=== PATIENT | male | born 1970 ===

== ENCOUNTER → 2019-07-29 | Outpatient (CLI) | payer OTHER ==
--- NOTE | 2019-07-29 09:28 | US ---
EXAMINATION TYPE: US liver DATE OF EXAM: 07/29/2019 COMPARISON: NONE CLINICAL HISTORY: R94.5 elevated lft. Elevated LFT'S. EXAM MEASUREMENTS: Liver Length: 15.1 cm Gallbladder Wall: .3 cm CBD: .3 cm Right Kidney: 10.8 x 4.3 x 3.2 cm Pancreas: Obscured by bowel gas Liver: Very mildly coarsened hepatic echotexture most commonly relating to hepatic steatosis. This s lightly limits evaluation for hepatic masses. No distinct hepatic mass is seen on today's exam. Gallbladder: Contracted patient states he was NPO. Evidence for sonographic Lindsey's sign: No CBD: wnl Right Kidney: Pelviectasis without hydronephrosis. IMPRESSION: 1. Mildly coarsened hepatic echotexture, most commonly related to early hepatic steatosis. Correlate with liver function test results. 2. Contracted gallbladder is incidentally seen. Obscuration of the pancreas by overlying bowel gas.
== END | disposition home or self-care (01) ==
LOC: RADUSWWP 08:18
PROVIDERS: ATTEND Internal Medicine
DX: K76.0 Fatty (change of) liver, not elsewhere classified (principal); R14.3 Flatulence; K86.89 Other specified diseases of pancreas
CPT/HCPCS: 76705

== ENCOUNTER 2019-11-24 | Observation (INO) | payer OTHER | END 2019-11-25 13:54 | disposition home or self-care (01) | PROVIDERS: ADMIT Hospitalist | CPT/HCPCS: 96366 ×2; 96376; 96365; 99291; 36415; 93005 ×2; 93017; 93306; 80061; 80053; 80048; 83735; 84484 ×2; 85025 ×2; 85610; 85730 ×2; 71046; 78452; G0378 ×2; A9500; J1644 ×2; J1245 ==

== ENCOUNTER 2021-01-01 13:26 | Emergency (ER) | payer OTHER ==
[2021-01-01 13:37] VITALS: BP 142/69; PULSE 69; RESP 18; TEMP 98
--- NOTE | 2021-01-01 13:57 | ED ---
General Adult HPI - General Chief complaint: Extremity Injury, Lower Stated complaint: Fall, L Ankle Pain Time Seen by Provider: 01/01/21 13:43 Source: patient, RN notes reviewed, old records reviewed Mode of arrival: wheelchair Limitations: no limitations - History of Present Illness Initial comments: 50-year-old male presenting with left ankle injury. Patient states he tripped and fell yesterday evening rolling his left ankle inward. No other injury reported. He's had increased pain and swelling over the past 24 hours. Pain is on both sides of the ankle but worse on the lateral aspect. No head or neck trauma. No chest pain or abdominal pain. - Related Data Home Medications Medication Instructions Recorded Confirmed Aspirin EC [Ecotrin Low Dose] 81 mg PO DAILY@1230 11/24/19 11/24/19 Atorvastatin [Lipitor] 80 mg PO DAILY@1230 11/24/19 11/24/19 Levothyroxine Sodium [Synthroid] 112 mcg PO DAILY@1230 11/24/19 11/24/19 Metoprolol Tartrate [Lopressor] 25 mg PO DAILY@1230 11/24/19 11/24/19 Nitroglycerin Sl Tabs [Nitrostat] 0.4 mg SUBLINGUAL Q5M PRN 11/24/19 11/24/19 Pantoprazole Sodium [Protonix] 40 mg PO DAILY@1230 11/24/19 11/24/19 lisinopriL [Zestril] 2.5 mg PO DAILY@1230 11/24/19 11/24/19 tiZANidine [Zanaflex] 4 mg PO DAILY@1230 11/24/19 11/24/19 Allergies Allergy/AdvReac Type Severity Reaction Status Date / Time blueberry Allergy Rash/Hives Verified 01/01/21 13:35 latex Allergy Rash/Hives Verified 01/01/21 13:35 Review of Systems ROS Statement: Those systems with pertinent positive or pertinent negative responses have been documented in the HPI. ROS Other: All systems not noted in ROS Statement are negative. Past Medical History Past Medical History: Asthma, Coronary Artery Disease (CAD), Myocardial Infarction ([place]), Thyroid Disorder Additional Past Medical History / Comment(s): kidney stones Last Myocardial Infarction Date:: 2017 History of Any Multi-Drug Resistant Organisms: None Reported Past Surgical History: Bladder Surgery, Heart Catheterization With Stent Date of Last Stent Placement:: 2017 Past Psychological History: No Psychological Hx Reported Smoking Status: Current every day smoker Past Alcohol Use History: None Reported Past Drug Use History: None Reported General Exam Limitations: no limitations General appearance: alert, in no apparent distress Head exam: Present: atraumatic, normocephalic Eye exam: Present: normal appearance, PERRL ENT exam: Present: normal exam Neck exam: Present: normal inspection Respiratory exam: Present: normal lung sounds bilaterally. Absent: respiratory distress Cardiovascular Exam: Present: regular rate, normal rhythm GI/Abdominal exam: Present: soft. Absent: distended, tenderness Extremities exam: Present: normal capillary refill, joint swelling, other (DP pulse intact, there is soft tissue swelling on both medial and lateral aspect of the ankle. No gross deformity.). Absent: pedal edema Neurological exam: Present: alert, oriented X3, CN II-XII intact. Absent: motor sensory deficit Psychiatric exam: Present: normal affect, normal mood Skin exam: Present: warm, dry, intact. Absent: cyanosis, diaphoretic Course Vital Signs 01/01/21 13:33 Temperature 98.0 F Pulse Rate 69 Respiratory 18 Rate Blood Pressure 142/69 O2 Sat by Pulse 98 Oximetry Procedures - Orthopedic Splinting/Casting Injury #1 Side: left Lower Extremity Injury Location: ankle Lower Extremity Immobilizer: Dylan wrap Medical Decision Making - Medical Decision Making 50-year-old male presenting for left ankle injury, x-ray performed, negative for acute fracture. There is significant soft tissue swelling. Patient placed in an Dylan wrap. He is given orthopedic follow-up as needed. He will also follow with his primary care physician. RICE Disposition Clinical Impression: Ankle sprain Disposition: HOME SELF-CARE Condition: Fair Instructions (If sedation given, give patient instructions): Ankle Sprain (ED) Is patient prescribed a controlled substance at d/c from ED?: No Referrals: Lucy Hale MD [Primary Care Provider] - 1-2 days Bakari Lindsey MD [STAFF PHYSICIAN] - 1-2 days Time of Disposition: 14:18
--- NOTE | 2021-01-01 14:13 | XR ---
EXAMINATION TYPE: XR ankle complete LT DATE OF EXAM: 01/01/2021 COMPARISON: NONE HISTORY: Pain. Fall. TECHNIQUE: 3 views FINDINGS: There is soft tissue swelling over the lateral malleolus. I see no fracture nor dislocation . There is small lucency in the medial dome of the talus consistent with focus of osteochondritis dis secans. Subtalar joint is normal. Calcaneus is intact. There is small Achilles calcaneal spur. IMPRESSION: Soft tissue swelling. No fracture. 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
== END 2021-01-01 14:28 | disposition home or self-care (01) ==
LOC: EC 13:26
DX: S93.402A Sprain of unspecified ligament of left ankle, initial encounter (principal); F17.200 Nicotine dependence, unspecified, uncomplicated; I25.10 Atherosclerotic heart disease of native coronary artery without angina pectoris; I25.2 Old myocardial infarction; J45.909 Unspecified asthma, uncomplicated; Z79.82 Long term (current) use of aspirin; W01.0XXA Fall on same level from slipping, tripping and stumbling without subsequent striking against object, initial encounter
CPT/HCPCS: 99283

== ENCOUNTER 2021-04-17 10:58 | Emergency (ER) | payer OTHER ==
[2021-04-17 11:02] VITALS: RESP 18
--- NOTE | 2021-04-17 12:06 | ED ---
General Adult HPI - General Chief complaint: Shortness of Breath Stated complaint: congestion, SOB Time Seen by Provider: 04/17/21 11:00 Source: patient, RN notes reviewed, old records reviewed Mode of arrival: ambulatory Limitations: no limitations - History of Present Illness Initial comments: This is a 51-year-old male who presents to the emergency department complaining that yesterday he had when he thought was a sinus infection asystole he woke up and he thinks moved into his chest per patient states she's been coughing all morning and had body aches. Patient states this made a little bit short of breath when coughing. Patient denies any fever or chills. Patient denies any chest pain per se he states he just aches all over. Patient denies nausea or vomiting. Patient states she's not coughing up any sputum. Patient states he has been vaccinated for COVID - Related Data Home Medications Medication Instructions Recorded Confirmed Aspirin EC [Ecotrin Low Dose] 81 mg PO DAILY@1230 11/24/19 04/17/21 Atorvastatin [Lipitor] 80 mg PO DAILY@1230 11/24/19 04/17/21 Levothyroxine Sodium [Synthroid] 112 mcg PO DAILY@1230 11/24/19 04/17/21 Metoprolol Tartrate [Lopressor] 25 mg PO DAILY@1230 11/24/19 04/17/21 Nitroglycerin Sl Tabs [Nitrostat] 0.4 mg SUBLINGUAL Q5M PRN 11/24/19 04/17/21 Pantoprazole Sodium [Protonix] 40 mg PO DAILY@1230 11/24/19 04/17/21 lisinopriL [Zestril] 2.5 mg PO DAILY@1230 11/24/19 04/17/21 Previous Rx's Medication Instructions Recorded Azithromycin [Zithromax Tri-Pasha] 500 mg PO DAILY #3 tab 04/17/21 Allergies Allergy/AdvReac Type Severity Reaction Status Date / Time blueberry Allergy Rash/Hives Verified 04/17/21 11:02 latex Allergy Rash/Hives Verified 04/17/21 11:02 Review of Systems ROS Statement: Those systems with pertinent positive or pertinent negative responses have been documented in the HPI. ROS Other: All systems not noted in ROS Statement are negative. Past Medical History Past Medical History: Asthma, Coronary Artery Disease (CAD), Myocardial Infarction ([place]), Thyroid Disorder Additional Past Medical History / Comment(s): kidney stones Last Myocardial Infarction Date:: 2017 History of Any Multi-Drug Resistant Organisms: None Reported Past Surgical History: Bladder Surgery, Heart Catheterization With Stent Date of Last Stent Placement:: 2018 Past Psychological History: No Psychological Hx Reported Smoking Status: Current every day smoker Past Alcohol Use History: None Reported Past Drug Use History: None Reported General Exam - General Exam Comments Initial Comments: GENERAL: Patient is well-developed and well-nourished. Patient is nontoxic and well-hydrated and is in mild distress. ENT: Neck is soft and supple. No significant lymphadenopathy is noted. Oropharynx is clear. Moist mucous membranes. Neck has full range of motion without eliciting any pain. EYES: The sclera were anicteric and conjunctiva were pink and moist. Extraocular movements were intact and pupils were equal round and reactive to light. Eyelids were unremarkable. PULMONARY: Unlabored respirations. Good breath sounds bilaterally. No audible rales rhonchi or wheezing was noted. CARDIOVASCULAR: There is a regular rate and rhythm without any murmurs gallops or rubs. ABDOMEN: Soft and nontender with normal bowel sounds. No palpable organomegaly was noted. There is no palpable pulsatile mass. SKIN: Skin is clear with no lesions or rashes and otherwise unremarkable. NEUROLOGIC: Patient is alert and oriented x3. Cranial nerves II through XII are grossly intact. Motor and sensory are also intact. Normal speech, volume and content. Symmetrical smile. MUSCULOSKELETAL: Normal extremities with adequate strength and full range of motion. No lower extremity swelling or edema. No calf tenderness. LYMPHATICS: No significant lymphadenopathy is noted PSYCHIATRIC: Normal psychiatric evaluation. Limitations: no limitations Course Vital Signs 04/17/21 11:00 Temperature 98.1 F Pulse Rate 53 L Respiratory 18 Rate Blood Pressure 144/77 O2 Sat by Pulse 97 Oximetry Medical Decision Making - Medical Decision Making EKG shows normal sinus rhythm at 79 bpm UT interval 158 QRS 70 QT interval is 356 QTC is 408. EKG shows no ST segment elevation or depression. X-ray shows a small opacification which could be an early pneumonia according to radiologist. I gave the patient 1 g Rocephin and we'll send the patient on Zithromax. - Lab Data Result diagrams: 04/17/21 12:15 04/17/21 12:15 Lab Results 04/17/21 04/17/21 04/17/21 Range/Units 12:15 12:15 12:15 WBC 10.9 H (3.8-10.6) k/uL RBC 4.91 (4.30-5.90) m/uL Hgb 16.1 (13.0-17.5) gm/dL Hct 47.3 (39.0-53.0) % MCV 96.2 (80.0-100.0) fL MCH 32.9 (25.0-35.0) pg MCHC 34.1 (31.0-37.0) g/dL RDW 12.5 (11.5-15.5) % Plt Count 181 (150-450) k/uL MPV 8.6 Neutrophils % 82 % Lymphocytes % 7 % Monocytes % 6 % Eosinophils % 3 % Basophils % 1 % Neutrophils # 8.9 H (1.3-7.7) k/uL Lymphocytes # 0.8 L (1.0-4.8) k/uL Monocytes # 0.6 (0-1.0) k/uL Eosinophils # 0.3 (0-0.7) k/uL Basophils # 0.1 (0-0.2) k/uL Sodium 141 (137-145) mmol/L Potassium 4.2 (3.5-5.1) mmol/L Chloride 107 (98-107) mmol/L Carbon Dioxide 26 (22-30) mmol/L Anion Gap 8 mmol/L BUN 16 (9-20) mg/dL Creatinine 1.10 (0.66-1.25) mg/dL Est GFR (CKD-EPI)AfAm >90 (>60 ml/min/1.73 sqM) Est GFR (CKD-EPI)NonAf 78 (>60 ml/min/1.73 sqM) Glucose 106 H (74-99) mg/dL Calcium 9.9 (8.4-10.2) mg/dL Total Bilirubin 0.4 (0.2-1.3) mg/dL AST 34 (17-59) U/L ALT 27 (4-49) U/L Alkaline Phosphatase 90 (38-126) U/L Total Protein 7.4 (6.3-8.2) g/dL Albumin 4.4 (3.5-5.0) g/dL Coronavirus (PCR) Not Detected (Not Detectd) Disposition Clinical Impression: Pneumonia Disposition: HOME SELF-CARE Condition: Good Instructions (If sedation given, give patient instructions): Bacterial Pneumonia (ED) Prescriptions: Azithromycin [Zithromax Tri-Pasha] 500 mg PO DAILY #3 tab Is patient prescribed a controlled substance at d/c from ED?: No Referrals: Lucy Hale MD [Primary Care Provider] - 1-2 days Time of Disposition: 13:48
[2021-04-17] MEDS ORDERED: KETOROLAC 15 MG/ML 1 ML VIAL IVP STA (12:09)
[2021-04-17] MEDS ORDERED: ACETAMINOPHEN TAB 500 MG TAB PO STA (12:09)
[2021-04-17 12:40] LABS: Basophils # (A) 0.1 k/uL (0-0.2); Basophils % (A) 1 %; Eosinophils # (A) 0.3 k/uL (0-0.7); Eosinophils % (A) 3 %; HCT 47.3 % (39.0-53.0); HGB 16.1 gm/dL (13.0-17.5); Lymphocytes # (A) 0.8 k/uL (1.0-4.8); Lymphocytes % (A) 7 %; MCH 32.9 pg (25.0-35.0); MCHC 34.1 g/dL (31.0-37.0); MCV 96.2 fL (80.0-100.0); Mean Platelet Volume 8.6; Monocytes # (A) 0.6 k/uL (0-1.0); Monocytes % (A) 6 %; Neutrophils # (A) 8.9 k/uL (1.3-7.7); Neutrophils % (A) 82 %; Platelet Count 181 k/uL (150-450); RBC 4.91 m/uL (4.30-5.90); RDW 12.5 % (11.5-15.5); WBC 10.9 k/uL (3.8-10.6)
--- NOTE | 2021-04-17 12:44 | XR ---
EXAMINATION TYPE: XR chest 2V DATE OF EXAM: 04/17/2021 COMPARISON: 11/24/2019 HISTORY: 51 year-old male shortness of breath, difficulty breathing TECHNIQUE: PA and lateral views FINDINGS: The cardiomediastinal silhouette, aorta, and pulmonary vasculature are within normal limits. There is minimal patchy density in the periphery of the left midlung. No definite consolidation or pleural ef fusion. IMPRESSION: Minimal new patchy density in the periphery of the left mid lung. Correlate for atelectasis versus de veloping pneumonia.
[2021-04-17 12:47] LABS: ALT 27 U/L (4-49); AST 34 U/L (17-59); African American GFR (CKD) >90 (>60 ml/min/1.73 sqM); Albumin 4.4 g/dL (3.5-5.0); Alkaline Phosphatase 90 U/L (38-126); Anion Gap 8 mmol/L; Blood Urea Nitrogen 16 mg/dL (9-20); Calcium 9.9 mg/dL (8.4-10.2); Carbon Dioxide 26 mmol/L (22-30); Chloride 107 mmol/L (98-107); Glucose 106 mg/dL (74-99); Non-African American GFR(CKD) 78 (>60 ml/min/1.73 sqM); Potassium 4.2 mmol/L (3.5-5.1); Sodium 141 mmol/L (137-145); Total Bilirubin 0.4 mg/dL (0.2-1.3); Total Protein 7.4 g/dL (6.3-8.2)
[2021-04-17] MEDS ORDERED: cefTRIAXone IN SWFI 1,000 MG/10 ML SYRINGE IVP STA (13:47)
[2021-04-17 14:16] VITALS: BP 140/78; PULSE 60; TEMP 98.5
== END 2021-04-17 14:16 | disposition home or self-care (01) ==
LOC: EC 10:58
DX: J18.9 Pneumonia, unspecified organism (principal); J45.909 Unspecified asthma, uncomplicated; I25.2 Old myocardial infarction; I25.10 Atherosclerotic heart disease of native coronary artery without angina pectoris; E07.9 Disorder of thyroid, unspecified; F17.200 Nicotine dependence, unspecified, uncomplicated; Z91.040 Latex allergy status; Z91.018 Allergy to other foods; Z79.899 Other long term (current) drug therapy; Z79.890 Hormone replacement therapy; Z95.5 Presence of coronary angioplasty implant and graft; Z20.822 Contact with and (suspected) exposure to COVID-19
CPT/HCPCS: 36415; 93005; 80053; 85025; 87635; 71046; 96374; 96375; 99285; J0696; J1885